=== PATIENT | male | born 1985 | race Caucasian/White ===

== ENCOUNTER 2018-12-17 06:01 | Emergency (ER) | payer OTHER ==
[2018-12-17 06:08] VITALS: BP 157/102
[2018-12-17] MEDS ORDERED: ACETAMINOPHEN 500 MG TAB PO ONE (06:35)
[2018-12-17] MEDS ORDERED: KETOROLAC 15 MG/1 ML SDV IM ONE (06:35)
[2018-12-17] MEDS ORDERED: DIAZEPAM 5 MG TAB PO ONE (06:35)
--- NOTE | 2018-12-17 06:35 | EDPHY ---
H & P Stated Complaint: BACK PAIN Time Seen by Provider: 12/17/18 06:23 HPI/ROS: HPI The patient presents with thoracic back pain which has been present for the last 1 week but became worse about 2-3 days ago when he went to the chiropractor for an adjustment. The patient has a known history of thoracic back pain due to a disc herniation related to an accident several years ago and has intermittent back pain. He is followed by a pain medications specialist and is very diligent about taking appropriate doses of his medication. However , because the back pain became more severe he has run out of his Percocet over the last 2-3 days because he needed higher doses previously. He has an appointment on 2 days with his pain specialist. He describes an achy midthoracic back pain that radiates throughout his back and chest. This is associated with pain in his legs. He does not have any weakness of his arms or legs. He does not have any paresthesias. He does not have any difficulty urinating or defecating. He does not have any fevers. REVIEW OF SYSTEMS 10 systems were reviewed and negative with the exception of the elements mentioned in the history of present illness. PMHx: Multiple back injuries from accident several years ago with known thoracic disc herniation, level unknown to patient Soc Hx: Here with his mother PHYSICAL General Appearance: Alert, no distress Eyes: Pupils equal and round no pallor or injection ENT, Mouth: Mucous membranes moist Respiratory: There are no retractions, lungs are clear to auscultation Cardiovascular: Regular rate and rhythm Gastrointestinal: Abdomen is soft and non-tender, no masses, bowel sounds normal Neurological: A&O, sensation intact to light touch throughout legs, 5/5 strength in his lower extremities which is symmetric Skin: Warm and dry, no rashes Musculoskeletal: Back with tenderness at approximately T5-T6 with tenderness in the paraspinal region, limited flexion and extension of his back secondary to pain Extremities: symmetrical, full range of motion Psychiatric: Patient is oriented X 3, there is no agitation Source: Patient Exam Limitations: No limitations - Personal History Current Tetanus Diphtheria and Acellular Pertussis (TDAP): Yes - Medical/Surgical History Hx Asthma: No Hx Chronic Respiratory Disease: No Hx Diabetes: No Hx Cardiac Disease: No Hx Renal Disease: No Hx Cirrhosis: No Hx Alcoholism: No Hx HIV/AIDS: No Hx Splenectomy or Spleen Trauma: No Other PMH: HERNIATED DISCS, CHRONIC BACK PAIN, KNEE SX L, R FA SX - Social History Smoking Status: Never smoked Constitutional: Initial Vital Signs Temperature (C) 36.7 C 12/17/18 06:06 Heart Rate 98 12/17/18 06:06 Respiratory Rate 16 12/17/18 06:06 Blood Pressure 157/102 H 12/17/18 06:06 O2 Sat (%) 96 12/17/18 06:06 O2 Delivery Mode Room Air Allergies/Adverse Reactions: acetaminophen [From Excedrin Back and Body] Allergy (Verified 12/17/18 06:05) aspirin [From Excedrin Back and Body] Allergy (Verified 12/17/18 06:05) calcium carbonate [From Excedrin Back and Body] Allergy (Verified 12/17/18 06:05 ) tramadol Allergy (Verified 12/17/18 06:05) Home Medications: Medication Instructions Recorded CLONAZEPAM 12/17/18 Percocet 5-325 mg Tablet 12/17/18 Tizanidine HCl 12/17/18 methylPREDNISolone [Medrol Dose 4 mg PO DAILY 6 Days ea 12/17/18 Beni] oxyCODONE HCL/ACETAMINOPHEN 1 each PO Q6H PRN #10 tablet 12/17/18 [Percocet 5-325 mg Tablet] Medical Decision Making Differential Diagnosis: 33-year-old male with chronic back pain related to old injury. His pain became worse over the last 1 week and became more severe after chiropractic adjustment 2 days ago. He has also run out of his Percocet. He has follow-up appointments in a few days. He has no red flag features of his back pain-no fever, new weakness, bowel or bladder incontinence. Plan to treat here with medication to control his symptoms. If he is feeling better, he can go home with a Medrol Dosepak with a short course of Percocet. Differential diagnoses considered include thoracic disc herniation, muscle spasm , much less likely cauda equina. Departure - Departure Disposition: Home, Routine, Self-Care Clinical Impression: Acute thoracic back pain Qualifiers: Back pain laterality: bilateral Qualified Code(s): M54.6 - Pain in thoracic spine Condition: Good Instructions: Back Pain (ED) Additional Instructions: I recommend that you take ibuprofen 400 mg every 6 hr for your pain. You can then take the Percocet if the pain is worse. I recommend taking the steroid Dosepak as well for your pain. Referrals: Fadi Bentley MD [Primary Care Provider] - As per Instructions Prescriptions: methylPREDNISolone [Medrol Dose Beni] 4 mg PO DAILY 6 Days ea oxyCODONE HCL/ACETAMINOPHEN [Percocet 5-325 mg Tablet] 1 each PO Q6H PRN #10 tablet PRN Reason: Pain, Breakthrough
[2018-12-17] MEDS ORDERED: DEXAMETHASONE 4 MG TAB PO ONE (06:36)
[2018-12-17] MEDS ORDERED: OXYCODONE/APAP 5/325MG PREPACK#4 BTL TAKEHOME ONE (06:36)
== END 2018-12-17 07:43 | disposition home or self-care (01) ==
DX: M54.6 Pain in thoracic spine (principal); G89.11 Acute pain due to trauma
CPT/HCPCS: J1885

== ENCOUNTER 2019-02-20 05:52 | Observation (INO) | payer OTHER | END 2019-02-21 11:28 | disposition home or self-care (01) | LOC: F3N 05:52 ==

== ENCOUNTER 2019-02-24 05:55 | Emergency (ER) | payer OTHER | END 2019-02-24 08:42 | disposition home or self-care (01) ==